=== PATIENT | female | born 1995 | race Caucasian/White ===

== ENCOUNTER 2024-03-04 12:13 | Emergency (ER) | payer BC ==
[~2024-03-04] VITALS: Ht 165.1 cm; Wt 74.4 kg
[2024-03-04] MEDS ORDERED: CLIN150C16 PO (14:11)
[2024-03-04] MEDS ORDERED: IBUP-1490 PO (14:11)
[2024-03-04 14:18] VITALS: BP 118/71; TEMP 98; O2SAT 99
[2024-03-04] MEDS ORDERED: CLINDAMYCIN HCL 150 MG CAPSULE PO ONE (14:30)
== END 2024-03-04 14:18 | disposition left against medical advice (07) ==
LOC: ER 12:21
DX: N61.1 Abscess of the breast and nipple (principal)

== ENCOUNTER 2024-05-17 15:59 | Emergency (ER) | payer BC ==
[~2024-05-17] VITALS: Ht 165.1 cm; Wt 72.6 kg
[~2024-05-17 15:59] MED LIST: CLIN150C16 PO; IBUP-1490 PO
[2024-05-17 16:08] VITALS: BP 106/70; TEMP 98.3
[2024-05-17] MEDS ORDERED: CEPH-570 PO (16:53)
[2024-05-17 16:57] VITALS: O2SAT 99
== END 2024-05-17 16:58 | disposition home or self-care (01) ==
LOC: ER 16:04
DX: L02.811 Cutaneous abscess of head [any part, except face] (principal); Z79.2 Long term (current) use of antibiotics